=== PATIENT | male | born 1985 | race Two or more races ===

== ENCOUNTER → 2017-08-06 | Outpatient (CLI) | payer BC ==
[2013-10-22 17:24] VITALS: BP 138/80
--- NOTE | 2017-08-06 13:11 | RAD ---
EXAM: Abdomen sonogram limited. HISTORY: Pain. TECHNIQUE: Sonographic imaging of the abdomen was performed. COMPARISON: None. FINDINGS: The liver is enlarged. There is hepatic steatosis. No focal hepatic lesion is seen. The gallbladder is unremarkable. The common bile duct is normal in caliber. The right kidney is unremarkable. The pancreas is obscured due to bowel gas. The inferior vena cava is patent. The aorta is not assessed. IMPRESSION: 1. Hepatomegaly and hepatic steatosis. 2. No acute finding. Electronically signed by: Lee Ann Hoffmann MD (08/06/2017 1:07 PM) [place] [id number]
== END | disposition home or self-care (01) ==
LOC: US 09:38
PROVIDERS: ATTEND Physician Assistant Medical
DX: K76.0 Fatty (change of) liver, not elsewhere classified (principal); R16.0 Hepatomegaly, not elsewhere classified
CPT/HCPCS: 76705

== ENCOUNTER → 2017-08-07 | Outpatient (CLI) | payer BC ==
[2013-10-22 17:24] VITALS: BP 138/80
[~2017-08-07] MED LIST: IOHEXOL 240 MG/ML 50ML VIAL. ONE; IOHEXOL 240 MG/ML 50ML VIAL. PO ONE; IOHEXOL 300 MG/ML 50 ML VIAL. IV ONE
--- NOTE | 2017-08-07 12:59 | RAD ---
PQRS Compliance Statement: One or more of the following individualized dose reduction techniques were utilized for this examination: 1. Automated exposure control 2. Adjustment of the mA and/or kV according to patient size 3. Use of iterative reconstruction technique CT abdomen with contrast 08/07/2017 11:30 AM INDICATION: Elevated liver enzymes COMPARISON: Ultrasound abdomen August 06, 2017 TECHNIQUE: Multiple axial CT images of the abdomen were obtained after the intravenous administration of 75 mL Omnipaque 300. Coronal and sagittal reformats are provided. FINDINGS: Visualized portions of the lung bases are clear. Heart size is within normal limits. Diffuse hypoattenuation of the hepatic parenchyma suggestive of hepatic steatosis. No suspicious hepatic masses are identified. Liver is homogeneous in enhancement. Spleen, bilateral adrenal glands, and pancreas are normal in appearance. Gallbladder is present without adjacent inflammatory changes. There is no intrahepatic or extrahepatic biliary ductal dilatation. The abdominal aorta is normal in course and caliber. There are no pathologically enlarged lymph nodes in the abdomen. There is no abdominal free fluid. There is no free intraperitoneal air. The kidneys enhance symmetrically. There is no suspicious renal mass. There is no hydronephrosis. There are no suspected calculi within the kidneys. Hypoattenuating 7 mm lesion in the medial midpole the left kidney is too small characterize, however statistically favor to represent a simple cyst. Oral contrast was administered. Opacified bowel loops demonstrate normal mucosal fold pattern. Small and large bowel are normal in caliber. There is no evidence for bowel obstruction. There are no pericolonic inflammatory changes. A normal, nondilated appendix is visualized without adjacent inflammatory changes. No suspicious osseous lesions are identified. IMPRESSION: Hypoattenuation the hepatic parenchyma suggestive of hepatic steatosis. No suspicious hepatic masses are identified. No intrahepatic or extra hepatic biliary ductal dilatation. There is a 7 mm hypoattenuating lesion in the medial midpole the left kidney. Further characterization by ultrasound may be of benefit as this is too small to categorize by CT. Alternatively, 6-12 month follow-up CT may be of benefit. Electronically signed by: Gilma Garcia MD (08/07/2017 12:56 PM) [facility]
== END | disposition home or self-care (01) ==
LOC: CT 11:09
PROVIDERS: ATTEND Physician Assistant Medical
DX: R74.8 Abnormal levels of other serum enzymes (principal)
CPT/HCPCS: 74160; Q9966; Q9967

== ENCOUNTER → 2018-12-25 | Outpatient (CLI) | payer BC ==
[2013-10-22 17:24] VITALS: BP 138/80
--- NOTE | 2018-12-25 16:21 | RAD ---
CHEST PA LATERAL History: Cough Comparison: None. Findings: Patchy left lower lobe opacity. No pneumothorax. No pleural effusion. Normal heart size. Impression: 1. Patchy left lower lobe opacity, concerning for pneumonia. Recommend follow-up to ensure resolution. Electronically signed by: Bertram Grajeda DO (12/25/2018 4:18 PM) [facility]
== END | disposition home or self-care (01) ==
LOC: PMG 10:13
PROVIDERS: ATTEND Registered Nurse
DX: J98.4 Other disorders of lung (principal)
CPT/HCPCS: 71046